=== PATIENT | male | born 1990 | race African-American/Black ===

== ENCOUNTER 2018-05-19 23:11 | Emergency (ER) | payer OTHER ==
[~2018-05-19] VITALS: Ht 175.3 cm; Wt 112.5 kg
[2018-05-19 23:17] VITALS: BP 124/87
[2018-05-19] MEDS ORDERED: FAMOTIDINE 20 MG TABLET ONE (23:39)
[2018-05-20] MEDS ORDERED: FAMOTIDINE 20 MG TABLET PO ONE
== END 2018-05-20 00:35 | disposition home or self-care (01) ==
LOC: ED 23:59
DX: L50.9 Urticaria, unspecified (principal); T78.40XA Allergy, unspecified, initial encounter; X58.XXXA Exposure to other specified factors, initial encounter
CPT/HCPCS: 99284; J7512; Q0177

== ENCOUNTER 2018-07-01 19:40 | Emergency (ER) | payer OTHER ==
[~2018-07-01] VITALS: Ht 175.3 cm; Wt 114.4 kg
[2018-07-01 19:41] VITALS: BP 141/114
--- NOTE | 2018-07-01 19:54 | NUR ---
RIGHT POSTERIOR THIGH PAIN FOR APPROXIMATELY ONE WEEK. INJURED IT PLAYING BASKETBALL
== END 2018-07-01 20:22 | disposition home or self-care (01) ==
LOC: ED 20:16
DX: S76.311A Strain of muscle, fascia and tendon of the posterior muscle group at thigh level, right thigh, initial encounter (principal); X50.1XXA Overexertion from prolonged static or awkward postures, initial encounter; Y93.67 Activity, basketball; Y92.328 Other athletic field as the place of occurrence of the external cause; Y99.8 Other external cause status
CPT/HCPCS: 99283